=== PATIENT | male | born 1970 | race Hispanic/Latino ===

== ENCOUNTER 2017-07-16 15:07 | Emergency (ER) | payer BC | END 2017-07-16 17:36 | disposition home or self-care (01) | LOC: EDH 15:07 | DX: S20.312A Abrasion of left front wall of thorax, initial encounter (principal); S20.311A Abrasion of right front wall of thorax, initial encounter; I10 Essential (primary) hypertension; Z98.890 Other specified postprocedural states; V49.59XA Passenger injured in collision with other motor vehicles in traffic accident, initial encounter; Y93.89 Activity, other specified; Y92.89 Other specified places as the place of occurrence of the external cause; Y99.8 Other external cause status | CPT/HCPCS: 71110 ==